=== PATIENT | female | born 1965 | race Hispanic/Latino ===

== ENCOUNTER 2021-08-06 05:34 | Observation (INO) | payer OTHER ==
[2021-08-05 13:35] LABS: BASOPHILS % (AUTO) 0.4 % (0.0-5.0); EOSINOPHILS % (AUTO) 4.1 % (0.0-8.0); HEMATOCRIT 41.7 % (36-48); LYMPHOCYTES % (AUTO) 21.3 % (21.0-51.0); MEAN CORPUSCULAR HEMOGLOBIN 28.5 pg (27.0-33.0); MEAN CORPUSCULAR HGB CONC 30.5 g/dL (32.0-36.0); MEAN CORPUSCULAR VOLUME 93.7 fL (79-99); MONOCYTES % (AUTO) 5.9 % (3.0-13.0); PLATELET COUNT (AUTO) 336 K/uL (130-400); RED BLOOD CELL COUNT(AUTO) 4.45 MIL/uL (4.00-5.50); RED CELL DISTRIBUTION WIDTH 13.7 % (11.0-15.5); WHITE BLOOD COUNT (AUTO) 9.7 K/uL (4.8-10.8)
[2021-08-06] VITALS (22 sets, daily range): BP systolic 108–183; BP diastolic 57–102
[~2021-08-06] VITALS: Ht 152.4 cm; Wt 129.5 kg
[~2021-08-06 05:34] MED LIST: ATOR40TA71 PO; BACL20TA PO; CARV12.511 PO; DESL5TAB45 PO; HYDR-3421 PO; HYDR25TA PO; LOSA100T58 PO; SULI200T4 PO
[2021-08-06] MEDS ORDERED: CEFAZOLIN SODIUM 1 GM VIAL ONE (06:12)
[2021-08-06] MEDS ORDERED: LACTATED RINGERS 1000ML 1,000 ML IV ONE (06:13)
[2021-08-06] MEDS ORDERED: SUCCINYLCHOLINE 200MG/10ML SYR ONE (06:56)
[2021-08-06] MEDS ORDERED: LIDOCAINE PF 100MG/5ML (2%) SYRINGE 5ML ONE (06:56)
[2021-08-06] MEDS ORDERED: ROCURONIUM BROMIDE 10MG/1ML 5ML VL ONE ×2 (06:57→08:06)
[2021-08-06] MEDS ORDERED: PROPOFOL 10 MG/ML 20ML VIAL IV ONE (06:57)
[2021-08-06] MEDS ORDERED: FENTANYL CITRATE PF 50 MCG/1 ML 2ML VIAL ONE (06:58)
[2021-08-06] MEDS ORDERED: MIDAZOLAM HCL 1 MG/ML 2ML VIAL ONE (07:01)
[2021-08-06] MEDS ORDERED: LACTATED RINGERS 1000ML 1,000 ML IV SCH (08:00)
[2021-08-06] MEDS ORDERED: CEFAZOLIN SODIUM 100 GM IV SCH (09:00)
[2021-08-06] MEDS ORDERED: ONDANSETRON 4MG INJ ONE (10:05)
[2021-08-06] MEDS ORDERED: MEPERIDINE-PF 25 MG/ML SYG ONE ×3 (10:05→11:20)
[2021-08-06] MEDS ORDERED: GLYCOPYRROLATE 1 MG/5 ML SYRINGE ONE (10:18)
[2021-08-06] MEDS ORDERED: NEOSTIGMINE 5MG/5ML SYR IV ONE (10:18)
[2021-08-06] MEDS ORDERED: ACETAMINOPHEN WITH CODEINE 1 TAB TAB PO PRN (13:00)
[2021-08-06] MEDS ORDERED: IBUPROFEN 600 MG TABLET PO PRN (13:00)
[2021-08-06] MEDS ORDERED: BISACODYL 10 MG SUPP.RECT RC PRN (13:00)
[2021-08-06] MEDS ORDERED: PROMETHAZINE HCL 25 MG/ML 1ML AMPULE IM PRN (13:00)
[2021-08-06] MEDS: PROMETHAZINE HCL 25 MG/ML 1ML AMPULE IM PRN ×2 (13:18→20:38)
[2021-08-06] MEDS: MEPERIDINE-PF 75 MG/ML SYG IM PRN ×2 (13:19→20:39)
[2021-08-06] MEDS: DEXTROSE 5 %-0.45 % NACL 1,000 ML IV PRN ×2 (13:24→22:18)
[2021-08-06] MEDS ORDERED: HYDRALAZINE 20MG/ML VIAL IV ONE (16:55)
[2021-08-06] MEDS ORDERED: HYDROXYZINE 25 MG TABLET PO PRN (17:00)
[2021-08-06] MEDS: SIMETHICONE 80 MG TAB.CHEW PO PRN (20:32)
[2021-08-06] MEDS: DOCUSATE SODIUM 100 MG CAP PO PRN (20:32)
[2021-08-06] MEDS: CARVEDILOL 12.5 MG TABLET PO SCH (20:36)
[2021-08-06] MEDS: SULINDAC 200 MG PO SCH (21:00)
[2021-08-06] MEDS ORDERED: BACLOFEN 10 MG TABLET PO SCH (21:00)
[2021-08-06] MEDS ORDERED: ATORVASTATIN 40 MG TABLET PO SCH (21:00)
[2021-08-07 03:30] VITALS: BP 119/71
[2021-08-07] MEDS ORDERED: HYDROCODONE/ACETAMINOPHEN 5/325 MG TAB PO PRN (03:30)
[2021-08-07] MEDS ORDERED: IBUPROFEN 800 MG TAB PO PRN (03:30)
[2021-08-07 04:57] LABS: HEMATOCRIT 37.4 % (36-48); MEAN CORPUSCULAR HEMOGLOBIN 28.5 pg (27.0-33.0); MEAN CORPUSCULAR HGB CONC 30.5 g/dL (32.0-36.0); MEAN CORPUSCULAR VOLUME 93.5 fL (79-99); RED CELL DISTRIBUTION WIDTH 13.7 % (11.0-15.5); WHITE BLOOD COUNT (AUTO) 11.2 K/uL (4.8-10.8)
[2021-08-07 07:23] VITALS: BP 118/53
[2021-08-07] MEDS ORDERED: LOSARTAN 100 MG TABLET PO SCH (09:00)
[2021-08-07] MEDS ORDERED: HYDROCHLOROTHIAZIDE 25 MG TABLET PO SCH (09:00)
[2021-08-07] MEDS ORDERED: DESLORATADINE 5 MG PO SCH (09:00)
[2021-08-07] MEDS: SULINDAC 200 MG PO SCH (09:00)
[2021-08-07] MEDS: SIMETHICONE 80 MG TAB.CHEW PO PRN (09:05)
[2021-08-07] MEDS: DOCUSATE SODIUM 100 MG CAP PO PRN (09:05)
[2021-08-07] MEDS: CARVEDILOL 12.5 MG TABLET PO SCH (09:06)
[2021-08-07 11:21] VITALS: BP 124/76
[2021-08-07] MEDS ORDERED: FLU VACC QS2021-22(6MOS UP)/PF 60 MCG/0.5 ML ML IM ONE (12:00)
[2021-08-07 16:15] VITALS: BP 124/66
== END 2021-08-07 17:50 | disposition home or self-care (01) ==
LOC: DAH 05:34 → WSH 05:35 → DAH 05:35 → WSH 12:00
PROVIDERS: ADMIT Obstetrics & Gynecology; ATTEND Obstetrics & Gynecology
DX: N95.8 Other specified menopausal and perimenopausal disorders (principal); Z20.822 Contact with and (suspected) exposure to COVID-19; D25.9 Leiomyoma of uterus, unspecified; N39.498 Other specified urinary incontinence; E66.01 Morbid (severe) obesity due to excess calories; K46.9 Unspecified abdominal hernia without obstruction or gangrene; N39.3 Stress incontinence (female) (male); N73.6 Female pelvic peritoneal adhesions (postinfective); N92.1 Excessive and frequent menstruation with irregular cycle; Z23 Encounter for immunization; Z79.899 Other long term (current) drug therapy; Z98.890 Other specified postprocedural states; Z68.43 Body mass index [BMI] 50.0-59.9, adult; Z71.85 Encounter for immunization safety counseling
CPT/HCPCS: 36415 ×2; 58552; 82948; 85025; 85027; 86850; 86900; 86901; 87635; 90471; 96372; 96374; A4215 ×2; A4216; A4221; A4222; A4223 ×2; A4344; A4510; A4600; A4649 ×2; A4663; A4930; C1769 ×4; C1771; C9803; G0378 ×30; J0330; J0360; J0690; J2001; J2175 ×5; J2250; J2405; J2550 ×2; J2704; J2710; J3010; J3490 ×3; J7030; J7120 ×2; Q2035